=== PATIENT | male | born 1990 | race Two or more races ===

== ENCOUNTER 2018-06-27 20:25 | Emergency (ER) | payer OTHER ==
[2018-06-27 20:54] VITALS: TEMP 97.8; BMI 24.3
[2018-06-27] MEDS ORDERED: ACETAMINOPHEN 1000 MG/100 ML VIAL (NON FORMULARY) IVPB ONE (21:29)
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
[2018-06-27] MEDS ORDERED: ACETAMINOPHEN INJECTION 100 ML IVPB ONE (21:40)
[2018-06-27] MEDS ORDERED: diazePAM 2 MG TABLET PO ONE (21:53)
[2018-06-27] MEDS ORDERED: diazePAM 2 MG TABLET ONE (22:23)
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
[2018-06-28 01:35] VITALS: BP 138/76; PULSE 87
== END 2018-06-28 01:35 | disposition home or self-care (01) ==
LOC: JER 20:25
PROC: 3E033NZ Introduction of Analgesics, Hypnotics, Sedatives into Peripheral Vein, Percutaneous Approach (ICD-10-PCS; principal; 2018-06-27)
DX: R51 Headache (principal); M54.5 Low back pain; V43.52XA Car driver injured in collision with other type car in traffic accident, initial encounter; Y92.481 Parking lot as the place of occurrence of the external cause; Y93.89 Activity, other specified; Y99.8 Other external cause status
CPT/HCPCS: 70450-TC; 72100-TC-FY; 99283-25; J0131

== ENCOUNTER 2018-09-10 13:52 | Emergency (ER) | payer OTHER ==
[2018-09-10 14:14] VITALS: TEMP 97.8; BMI 25.8
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
[2018-09-10] MEDS ORDERED: ACETAMINOPHEN 325 MG TABLET (FP) PO ONE (15:35)
[2018-09-10] MEDS ORDERED: METHOCARBAMOL 500 MG TABLET PO ONE (15:35)
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
[2018-09-10] MEDS ORDERED: ACETAMINOPHEN 325 MG TABLET (FP) ONE (16:04)
[2018-09-10] MEDS ORDERED: METHOCARBAMOL 500 MG TABLET ONE (16:04)
[2018-09-10 16:10] LABS: PH,URINE 8.5 (5.0-8.0); URINE APPEARANCE CLEAR; URINE BILIRUBIN NEGATIVE (NEGATIVE); URINE COLOR YELLOW; URINE GLUCOSE (UA) NEGATIVE (NEGATIVE); URINE KETONE NEGATIVE (NEGATIVE); URINE LEUK ESTERASE NEGATIVE (NEGATIVE); URINE NITRITE NEGATIVE (NEGATIVE); URINE PROTEIN NEGATIVE (NEGATIVE)
[2018-09-10 19:32] VITALS: BP 137/87; PULSE 80
== END 2018-09-10 19:32 | disposition home or self-care (01) ==
LOC: JER 13:52
DX: M54.2 Cervicalgia (principal); V43.52XA Car driver injured in collision with other type car in traffic accident, initial encounter; Y93.89 Activity, other specified; Y92.410 Unspecified street and highway as the place of occurrence of the external cause
CPT/HCPCS: 70450-TC; 72070-TC-FY; 72100-TC-FY; 72125-TC; 72128-TC; 72170-TC-FY; 73030-TC-RT-FY; 73560-TC-LT-FY; 81003; 99283-25

== ENCOUNTER 2018-09-16 18:33 | Observation (INO) | payer OTHER ==
--- NOTE | 2018-09-16 18:42 | PDOC ---
Rapid Medical Evaluation Chief Complaint: Pain, Acute Time Seen by Provider: 09/16/18 18:39 Medical Evaluation: Allergies Allergy/AdvReac Type Severity Reaction Status Date / Time aspirin Allergy Verified 09/10/18 14:13 09/16/18 18:40 I have performed a brief in person evaluation at triage on this patient. CC: Right shoulder pain HPI: Pt states that his MD stated for him to come to the ED and have his MD paged as he is to have a repeat right shoulder xray. PE: Skin: clear Lungs: clear Heart: RRR MS: Pt's right UE is in a sling, unable to be evaluated at this time. Neuro: Alert and oriented Psych: Appropriate affect I have ordered: Right xray Pt will proceed to [facility] for further evaluation. Discharge Disposition - Diagnosis Shoulder pain, right Qualifiers: Chronicity: acute Qualified Code(s): M25.511 - Pain in right shoulder - Referrals - Patient Instructions - Post Discharge Activity
--- NOTE | 2018-09-16 19:12 | PDOC ---
History of Present Illness - General Chief Complaint: Pain, Acute Stated Complaint: SENT BY PCP Time Seen by Provider: 09/16/18 18:39 - History of Present Illness Initial Comments: 09/16/18 19:10 28-year-old male without comorbidities presents for evaluation through the office of an orthopedic surgeon for right shoulder dislocation. Past History - Past Medical History Allergies/Adverse Reactions: Allergies Allergy/AdvReac Type Severity Reaction Status Date / Time aspirin Allergy Verified 09/16/18 18:42 Home Medications: Ambulatory Orders NK [No Known Home Medication] 09/16/18 COPD: No - Suicide/Smoking/Psychosocial Hx Smoking History: Never smoked Have you smoked in the past 12 months: No Hx Alcohol Use: No Drug/Substance Use Hx: No Review of Systems - Review of Systems Musculoskeletal: Yes: Joint Pain *Physical Exam - Vital Signs Last Vital Signs Temp Pulse Resp BP Pulse Ox 99 F 85 18 137/83 100 09/16/18 18:41 09/16/18 18:41 09/16/18 18:41 09/16/18 18:41 09/16/18 18:41 - Physical Exam Comments: 09/16/18 19:11 Right shoulder skin color and temperature are normal. He has minimal internal and external rotation tenderness about the glenohumeral joint and scapula waning without gross sensorimotor deficits. Medical Decision Making - Medical Decision Making 09/16/18 19:[address] Bonilla will see the patient in fast track. 09/16/18 22:41 Pt will be admitted to Dr Bonilla after MRI *DC/Admit/Observation/Transfer Diagnosis at time of Disposition: Shoulder instability Shoulder pain, right Qualifiers: Chronicity: acute Qualified Code(s): M25.511 - Pain in right shoulder - Referrals - Patient Instructions - Post Discharge Activity
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
--- NOTE | 2018-09-16 22:58 | PDOC ---
*Physical Exam - Vital Signs Last Vital Signs Temp Pulse Resp BP Pulse Ox 99 F 85 18 137/83 100 09/16/18 18:41 09/16/18 18:41 09/16/18 18:41 09/16/18 18:41 09/16/18 18:41 Medical Decision Making - Medical Decision Making 09/16/18 22:58 Patient seen by the advanced practice provider under my direct supervision. Ancillary testing reviewed as necessary. I agree with plan as outlined by the advanced practice provider. *DC/Admit/Observation/Transfer Diagnosis at time of Disposition: Shoulder instability Shoulder pain, right Qualifiers: Chronicity: acute Qualified Code(s): M25.511 - Pain in right shoulder - Referrals - Patient Instructions - Post Discharge Activity
[2018-09-16] MEDS ORDERED: SODIUM CHLORIDE 1,000 ML IV SCH (23:45)
[2018-09-16] MEDS ORDERED: SODIUM CHLORIDE 0.9% 500 ML INFUS.BAG IV ONE (23:50)
--- NOTE | 2018-09-17 00:44 | PDOC ---
*Physical Exam - Vital Signs Last Vital Signs Temp Pulse Resp BP Pulse Ox 99 F 85 18 137/83 100 09/16/18 18:41 09/16/18 18:41 09/16/18 18:41 09/16/18 18:41 09/16/18 18:41 ED Treatment Course - LABORATORY CBC & Chemistry Diagram: 09/18/18 07:55 09/18/18 07:55 Medical Decision Making - Medical Decision Making 09/17/18 00:42 patient MRI completed. patient evaluated by Dr. srivastava. patient to be admitted for ortho surgery evaluation possible OR for repair tomorrow. Patient signed out to Dr. Messina/ Miah *DC/Admit/Observation/Transfer Diagnosis at time of Disposition: Shoulder pain, right Qualifiers: Chronicity: acute Qualified Code(s): M25.511 - Pain in right shoulder Shoulder instability Qualifiers: Laterality: unspecified laterality Qualified Code(s): M25.319 - Other instability, unspecified shoulder - Discharge Dispostion Disposition: HOME Condition at time of disposition: Stable Decision to Admit order: Yes - Referrals - Patient Instructions - Post Discharge Activity
[2018-09-17 01:05] LABS: EOS % 1.5 % (0-4.5); HEMOGLOBIN 15.8 GM/dL (11.7-16.9); LYMPH % 45.7 % (8-40); MCH 30.4 pg (25.7-33.7); MCHC 34.3 g/dl (32.0-35.9); MEAN CELL VOLUME 88.7 fl (80-96); MEAN PLT VOLUME 11.1 fl (7.5-11.1); MONO % 6.4 % (3.8-10.2); NEUT % 45.4 % (42.8-82.8); PLATELET COUNT 163 K/MM3 (134-434); RBC 5.18 M/mm3 (4.00-5.60); RDW 12.8 % (11.9-15.9); WHITE BLOOD COUNT 5.1 K/mm3 (4.0-10.0)
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
[2018-09-17 01:07] LABS: INR 1.11 (0.83-1.09); PROTHROMBIN TIME (PATIENT) 13.1 SEC (9.7-13.0)
[2018-09-17 01:14] LABS: ALK PHOS 104 U/L (45-117); ANION GAP 5 MMOL/L (8-16); BILIRUBIN,TOTAL 0.8 mg/dL (0.2-1); BLOOD UREA NITROGEN 17 mg/dL (7-18); CALCIUM 9.5 mg/dL (8.5-10.1); CHLORIDE 104 mmol/L (98-107); CO2 29 mmol/L (21-32); GLUCOSE,RANDOM 94 mg/dL (74-106); SGOT/AST 14 U/L (15-37); SGPT/ALT 20 U/L (13-61); SODIUM 137 mmol/L (136-145); TOT PROT 7.9 g/dl (6.4-8.2)
[2018-09-17] MEDS ORDERED: traMADol HCL 50 MG TABLET PO PRN (01:20)
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
[2018-09-17] MEDS: LACTATED RINGERS SOLUTION 1,000 ML IV SCH ×3 (02:38→17:15)
[2018-09-17 06:43] LABS: BASO % 1.5 % (0-2.0); EOS % 1.4 % (0-4.5); HEMATOCRIT 42.3 % (35.4-49); HEMOGLOBIN 14.6 GM/dL (11.7-16.9); LYMPH % 60.8 % (8-40); MCH 30.3 pg (25.7-33.7); MCHC 34.5 g/dl (32.0-35.9); MEAN CELL VOLUME 87.7 fl (80-96); MEAN PLT VOLUME 11.2 fl (7.5-11.1); MONO % 7.9 % (3.8-10.2); NEUT % 28.4 % (42.8-82.8); PLATELET COUNT 159 K/MM3 (134-434); RBC 4.83 M/mm3 (4.00-5.60); RDW 12.7 % (11.9-15.9); WHITE BLOOD COUNT 4.2 K/mm3 (4.0-10.0)
[2018-09-17 07:06] LABS: ALBUMIN 3.6 g/dl (3.4-5.0); ALK PHOS 89 U/L (45-117); ANION GAP 6 MMOL/L (8-16); BILIRUBIN,TOTAL 0.9 mg/dL (0.2-1); BLOOD UREA NITROGEN 16 mg/dL (7-18); CALCIUM 8.8 mg/dL (8.5-10.1); CHLORIDE 107 mmol/L (98-107); CO2 27 mmol/L (21-32); CREATININE 0.9 mg/dL (0.55-1.3); GLUCOSE,RANDOM 90 mg/dL (74-106); PHOSPHOROUS 3.6 mg/dL (2.5-4.9); POTASSIUM 3.9 mmol/L (3.5-5.1); SGOT/AST 9 U/L (15-37); SGPT/ALT 16 U/L (13-61); SODIUM 140 mmol/L (136-145); TOT PROT 6.6 g/dl (6.4-8.2)
--- NOTE | 2018-09-17 07:33 | PN ---
Progress Note (short form) - Note Progress Note: ORTHOPEDIC SURGERY PROGRESS NOTE Department of Orthopedic Surgery SUBJECTIVE No acute events overnight. No complaints currently. Denies chest pain, shortness of breath, or calf pain. No nausea or vomiting. Pain controlled. Intake & Output 09/15/18 09/16/18 09/17/18 23:59 23:59 23:59 Other: Weight 163 lb Height 5 ft 8 in Body Mass Index (BMI) 24.7 Active Medications Generic Name Dose Route Start Last Admin Trade Name Freq PRN Reason Stop Dose Admin Sodium Chloride 1,000 mls @ 125 mls/hr 09/16/18 23:45 09/17/18 00:38 Normal Saline - IV 125 mls/hr ASDIR LEVI Administration Lactated Ringer's 1,000 mls @ 100 mls/hr 09/17/18 01:30 09/17/18 02:38 Lactated Ringers Solution IV 100 mls/hr ASDIR LEVI Administration Tramadol HCl 50 mg 09/17/18 01:20 Ultram - PO Q6H PRN PAIN LEVEL 7 - 10 Vital Signs (last) Temp Pulse Resp BP Pulse Ox 99 F 85 18 137/83 100 09/16/18 18:41 09/16/18 18:41 09/16/18 18:41 09/16/18 18:41 09/16/18 18:41 Laboratory (coagulation) PT with INR 13.10 SEC (9.7-13.0) H 09/17/18 00:32 Laboratory 09/17/18 05:20 PHYSICAL EXAMINATION General: Alert, oriented, cooperative and no distress. Upper Extremity: Shoulder brace on. Skin intact, no lesions, rashes or ulcers noted. Muscle mass equal and symmetric to contralateral side. No atrophy noted. No masses or effusions noted. Tenderness to palpation anteriorly. Full passive and active ROM of elbow, wrist and fingers, free from pain. M/R/U/MSK motor intact; Decreased sensation over lateral deltoid. 2+ radial pulses; Cap refill brisk. DVT Exam: No evidence of DVT seen on physical exam; No cords or calf tenderness ; No significant calf/ankle edema. ASSESSMENT AND PLAN Oc Zimmer is a 28 year old male with unstable posterior glenohumeral instability. His glenohumeral joint is currently reduced in the brace. - Plan for OR today for diagnostic arthroscopy with arthroscopic vs open stabilization. Risks, benefits, and alternatives discussed. We discussed risks including but not limited to, bleeding, pain, infection, scarring, damage to neurovascular structures, blood clots, pulmonary embolus, need for additional surgery, incomplete relief of pain, and incomplete return of function - NPO - IVF - SCDs - Pain control - Ice/Elevation - Appreciate medical management (Nutrition optimization, decubitus precautions heel/sacrum)
[2018-09-17 07:42] VITALS: BMI 24.9
[2018-09-17 09:41] LABS: ANISOCYTOSIS 0; MACROCYTOSIS 0; PLATELET ESTIMATE NORMAL
--- NOTE | 2018-09-17 10:34 | EKG ---
Test Reason : Blood Pressure : / mmHG Vent. Rate : 059 BPM Atrial Rate : 059 BPM P-R Int : 182 ms QRS Dur : 090 ms QT Int : 388 ms P-R-T Axes : 082 036 049 degrees QTc Int : 384 ms SINUS BRADYCARDIA WITH SINUS ARRHYTHMIA OTHERWISE NORMAL ECG WHEN COMPARED WITH ECG OF 17-SEP-2018 02:33, NO SIGNIFICANT CHANGE WAS FOUND Confirmed by ZACH DUTTON MD ([id number]) on 09/17/2018 10:34:10 AM Referred By: Confirmed By:ZACH DUTTON MD
[2018-09-17] MEDS ORDERED: ROPIVACAINE HCL 0.5% 30ML VIAL ONE (12:27)
[2018-09-17] MEDS ORDERED: MIDAZOLAM HCL 2 MG/2 ML SINGLE DOSE VIAL ONE ×2 (12:28)
[2018-09-17] MEDS ORDERED: PROPOFOL 20 ML ONE ×2 (13:11)
[2018-09-17] MEDS ORDERED: SUCCINYLCHOLINE CHLORIDE 200 MG/10 ML VIAL ONE (13:11)
[2018-09-17] MEDS ORDERED: ePHEDrine SULFATE 50 MG/1 ML AMPULE ONE (13:11)
[2018-09-17] MEDS ORDERED: ceFAZolin SODIUM 1 GM VIAL IVPB ONE (13:27)
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
[2018-09-17] MEDS ORDERED: PROMETHAZINE HCL 25 MG/1 ML VIAL IVPUSH PRN (16:10)
[2018-09-17] MEDS ORDERED: LACTATED RINGERS SOLUTION 1,000 ML IV STA ×2 (16:10→16:57)
[2018-09-17] MEDS ORDERED: ONDANSETRON 4 MG/2 ML VIAL IVPUSH PRN ×2 (16:10→16:57)
[2018-09-17] MEDS ORDERED: oxyCODONE HCL 5 MG TABLET PO PRN ×4 (16:18→16:57)
[2018-09-17] MEDS ORDERED: PROMETHAZINE HCL 25 MG/1 ML VIAL IVPB PRN (16:57)
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
[2018-09-18] MEDS: LACTATED RINGERS SOLUTION 1,000 ML IV SCH (01:27)
[2018-09-18 07:11] VITALS: TEMP 97.5
[2018-09-18 08:30] LABS: BASO % 0.5 % (0-2.0); EOS % 0.1 % (0-4.5); HEMOGLOBIN 14.1 GM/dL (11.7-16.9); LYMPH % 22.1 % (8-40); MCH 29.9 pg (25.7-33.7); MCHC 33.6 g/dl (32.0-35.9); MEAN CELL VOLUME 89.1 fl (80-96); MEAN PLT VOLUME 10.9 fl (7.5-11.1); MONO % 9.6 % (3.8-10.2); NEUT % 67.7 % (42.8-82.8); PLATELET COUNT 167 K/MM3 (134-434); RBC 4.72 M/mm3 (4.00-5.60); RDW 12.8 % (11.9-15.9); WHITE BLOOD COUNT 7.2 K/mm3 (4.0-10.0)
--- NOTE | 2018-09-18 08:33 | PN ---
Progress Note (short form) - Note Progress Note: ORTHOPEDIC SURGERY PROGRESS NOTE Department of Orthopedic Surgery SUBJECTIVE No acute events overnight. No complaints currently. Denies chest pain, shortness of breath, or calf pain. No nausea or vomiting. Tolerating oral intake. Pain control difficult overnight, but improving. Intake & Output 09/16/18 09/17/18 09/18/18 23:59 23:59 23:59 Intake Total 2200 1000 Output Total 0 Balance 2200 1000 Intake: IV 2000 1000 Lactated Ringers Solution 1000 1,000 ml @ 100 mls/hr IV ASDIR LEVI Rx#: [id number] Lactated Ringers Solution 1000 1,000 ml @ 100 mls/hr IV ASDIR LEVI Rx#: [id number] Oral 200 Output: Urine 0 Other: Voiding Method Toilet Urinal Urinal # Unmeasured Voids Void 1 Weight 164 lb 1 oz Height 5 ft 8 in Body Mass Index (BMI) 24.9 Weight Measurement Method [facility] Active Medications Generic Name Dose Route Start Last Admin Trade Name Freq PRN Reason Stop Dose Admin Fentanyl 50 mcg 09/17/18 16:57 Sublimaze Injection - IVPUSH [id number] PRN PAIN-PACU ORDER X 4 DOSES ONLY Lactated Ringer's 1,000 mls @ 100 mls/hr 09/17/18 16:57 09/18/18 01:27 Lactated Ringers Solution IV 100 mls/hr ASDIR LEVI Administration Ondansetron HCl 4 mg 09/17/18 16:57 09/17/18 18:05 Zofran Injection IVPUSH 4 mg Q6H PRN Administration NAUSEA AND/OR VOMITING Oxycodone HCl 5 mg 09/17/18 16:57 Roxicodone - PO Q4H PRN PAIN LEVEL 1-5 Oxycodone HCl 10 mg 09/17/18 16:57 09/17/18 11:46 Roxicodone - PO 10 mg Q4H PRN Administration PAIN LEVEL 6-10 Promethazine HCl 12.5 mg 09/17/18 16:57 Phenergan Injection - IVPB Q6H PRN NAUSEA-FOR RESCUE AFTER 15 MIN Vital Signs (last) Temp Pulse Resp BP Pulse Ox 97.5 F L 75 20 109/71 99 09/18/18 06:00 09/18/18 06:00 09/18/18 06:00 09/18/18 06:00 09/17/18 18:07 Laboratory (coagulation) PT with INR 13.10 SEC (9.7-13.0) H 09/17/18 00:32 PHYSICAL EXAMINATION General: Alert, oriented, cooperative and no distress. Upper Extremity: Shoulder immobilizer on. Dressing intact; M/R/U/MSK motor intact; Unable to asses deltoid function due to pain. Decreased sensation over deltoid. Remainder sensor exam normal to light touch. 2+ radial pulses; Cap refill brisk. DVT Exam: No evidence of DVT seen on physical exam; No cords or calf tenderness ; No significant calf/ankle edema. IMAGING Intraoperative fluoroscopic images shows reduction of the glenohumeral joint. ASSESSMENT AND PLAN Oc Zimmer is a 28 year old male with posterior glenohumeral instability status post closed reduction and arthroscopic capsular plication. POD#1 - Doing well - Pain control: Transition to oral pain medications - Keep shoulder brace on at all times. - DVT prophylaxis - Ice/Elevation - Appreciate medical management - No ROM of the shoulder. NWB. - Dispo planning: Patient can follow up in the office on Saturday09/23/2018 at 3: 00 PM
[2018-09-18 08:37] LABS: ALBUMIN 3.5 g/dl (3.4-5.0); ALK PHOS 84 U/L (45-117); ANION GAP 7 MMOL/L (8-16); BILIRUBIN,TOTAL 1.1 mg/dL (0.2-1); BLOOD UREA NITROGEN 15 mg/dL (7-18); CALCIUM 8.8 mg/dL (8.5-10.1); CHLORIDE 105 mmol/L (98-107); CO2 28 mmol/L (21-32); CREATININE 0.9 mg/dL (0.55-1.3); GLUCOSE,RANDOM 109 mg/dL (74-106); MAGNESIUM 1.8 mg/dL (1.8-2.4); PHOSPHOROUS 4.1 mg/dL (2.5-4.9); SGOT/AST 11 U/L (15-37); SGPT/ALT 17 U/L (13-61); SODIUM 140 mmol/L (136-145); TOT PROT 6.6 g/dl (6.4-8.2)
[2018-09-18 11:02] VITALS: BP 125/56; PULSE 88
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
--- NOTE | 2018-09-19 16:44 | PATH ---
Surgical Pathology Report Patient Name: BISMARK LIGHT Med. Rec. #: [id number] /Age/Gender: 1990 (Age: 28) / M Account: [id number] Location: [facility] MED/SURG Taken: 09/17/2018 Received: 09/18/2018 Reported: 09/19/2018 Physicians: DO Andreea Cohn M.D. Specimen(s) Received RIGHT SHOULDER SHAVINGS Clinical History Right shoulder pain, instability shoulder joint Final Diagnosis SHOULDER, RIGHT, ARTHROSCOPIC SHAVINGS: FIBROSYNOVIAL TISSUE, FIBROCOLLAGENOUS TISSUE AND SKELETAL MUSCLE. Electronically Signed Farida Torres M.D. Gross Description Received in formalin, labeled "right shoulder shavings," is a 3.0 x 1.5 x 0.2 cm. aggregate of bellamy-yellow soft tissue fragments. A parts representative portion is submitted in one cassette. /09/18/2018 saudi09/18/2018
== END 2018-09-18 13:26 | disposition home or self-care (01) ==
LOC: JER 18:33 → JERFT 18:33 → INTOOBSV 22:39 → JERBED 22:39 → J8W 09-17 06:49
PROVIDERS: ADMIT Internal Medicine; ATTEND Internal Medicine
PROC: 0RQJ4ZZ Repair Right Shoulder Joint, Percutaneous Endoscopic Approach (ICD-10-PCS; principal; 2018-09-16)
PROC: 0RBJ4ZZ Excision of Right Shoulder Joint, Percutaneous Endoscopic Approach (ICD-10-PCS; 2018-09-16)
PROC: 3E03329 Introduction of Other Anti-infective into Peripheral Vein, Percutaneous Approach (ICD-10-PCS; 2018-09-16)
PROC: 3E0337Z Introduction of Electrolytic and Water Balance Substance into Peripheral Vein, Percutaneous Approach (ICD-10-PCS; 2018-09-16)
PROC: 3E033GC Introduction of Other Therapeutic Substance into Peripheral Vein, Percutaneous Approach (ICD-10-PCS; 2018-09-16)
DX: S43.024A Posterior dislocation of right humerus, initial encounter (principal); S43.431A Superior glenoid labrum lesion of right shoulder, initial encounter; M25.311 Other instability, right shoulder; M25.511 Pain in right shoulder; V43.52XA Car driver injured in collision with other type car in traffic accident, initial encounter; Y93.89 Activity, other specified; Y92.410 Unspecified street and highway as the place of occurrence of the external cause; M65.811 Other synovitis and tenosynovitis, right shoulder
CPT/HCPCS: 36415; 73030-TC-RT-FY; 73221-TC-RT; 76000-TC-FY; 80053; 83735; 84100; 85025; 85610; 86850; 86900; 86901; 88304-TC; 93005; 93010; 94760; 99285-25; G0378; J7030

== ENCOUNTER 2020-12-18 14:11 | Emergency (ER) | payer OTHER ==
[2020-12-18 14:31] VITALS: BP 128/81; PULSE 92; TEMP 98; BMI 25.8
== END 2020-12-18 15:09 | disposition home or self-care (01) ==
LOC: JERFT 14:11 → JER 14:11 → JERFT 15:09
DX: R09.89 Other specified symptoms and signs involving the circulatory and respiratory systems (principal)
CPT/HCPCS: 70360-TC-FY; 99283-25

== ENCOUNTER 2021-01-03 17:57 | Inpatient (IN) | payer OTHER ==
[2021-01-03 22:59] LABS: BASO % 1.7 % (0-2.0); EOS % 0.6 % (0-4.5); HEMATOCRIT 46.3 % (35.4-49); HEMOGLOBIN 15.9 GM/dL (11.7-16.9); LYMPH % 52.5 % (8-40); MCH 29.8 pg (25.7-33.7); MCHC 34.4 g/dl (32.0-35.9); MEAN CELL VOLUME 86.4 fl (80-96); MEAN PLT VOLUME 10.2 fl (7.5-11.1); MONO % 17.2 % (3.8-10.2); PLATELET COUNT 157 10^3/uL (134-434); RBC 5.36 M/mm3 (4.00-5.60); RDW 13.3 % (11.9-15.9); WHITE BLOOD COUNT 2.8 K/mm3 (4.0-10.0)
[2021-01-03 23:05] LABS: INR 1.11 (0.83-1.09); PROTHROMBIN TIME (PATIENT) 13.6 SEC (9.7-13.0)
[2021-01-03 23:08] LABS: ACTIVATED PTT 31.4 SECONDS (25.2-36.5)
[2021-01-03 23:25] LABS: CHLORIDE 105 mmol/L (98-107); SODIUM 139 mmol/L (136-145)
[2021-01-03 23:28] LABS: ALBUMIN 4.1 g/dl (3.4-5.0); ANION GAP 4 MMOL/L (8-16); BLOOD UREA NITROGEN 7.3 mg/dL (7-18); CO2 30 mmol/L (21-32); GLUCOSE,RANDOM 87 mg/dL (74-106)
[2021-01-03 23:31] LABS: CREATININE 1.1 mg/dL (0.55-1.3); SGOT/AST 29 U/L (15-37); SGPT/ALT 46 U/L (13-61)
[2021-01-03] MEDS ORDERED: FLUCONAZOLE 200 MG/NS 100 ML IVPB ONE (23:32)
[2021-01-03 23:33] LABS: BILIRUBIN,TOTAL 0.9 mg/dL (0.2-1); TOT PROT 8.3 g/dl (6.4-8.2)
[2021-01-03 23:34] LABS: ALK PHOS 109 U/L (45-117)
[2021-01-03] MEDS ORDERED: VANCOMYCIN 1 GM in D5W (PRE-DOCKED) 1,000 MG/250 ML IVPB ONE (23:53)
[2021-01-03] MEDS ORDERED: CEFEPIME HCL/D5W 2 GM/50 ML BAG IVPB ONE (23:56)
[2021-01-04] MEDS ORDERED: VANCOMYCIN 1 GRAM (PRE-DOCKED) 1,000 MG/250 ML BAG IVPB ONE (01:21)
[2021-01-04] MEDS ORDERED: CEFEPIME 2 GM/100 ML BAG IVPB ONE (01:22)
[2021-01-04 08:00] LABS: PH,URINE 6.5 (5.0-8.0); URINE APPEARANCE CLEAR; URINE BILIRUBIN NEGATIVE (NEGATIVE); URINE COLOR YELLOW; URINE GLUCOSE (UA) NEGATIVE (NEGATIVE); URINE KETONE NEGATIVE (NEGATIVE); URINE LEUK ESTERASE NEGATIVE (NEGATIVE); URINE NITRITE NEGATIVE (NEGATIVE); URINE PROTEIN TRACE (NEGATIVE); URINE UROBILINOGEN 0.2 mg/dL (0.2-1.0)
[2021-01-04] MEDS ORDERED: CEFEPIME HCL/D5W 2 GM/50 ML BAG IVPB SCH (08:00)
[2021-01-04] MEDS ORDERED: CEFEPIME 2 GM in DEXTROSE 5%-WATER 100 ML IVPB SCH (09:00)
[2021-01-04 11:27] LABS: EOS % 0.3 % (0-4.5); HEMATOCRIT 43.8 % (35.4-49); HEMOGLOBIN 15.2 GM/dL (11.7-16.9); LYMPH % 23.1 % (8-40); MCH 29.9 pg (25.7-33.7); MCHC 34.8 g/dl (32.0-35.9); MEAN CELL VOLUME 85.9 fl (80-96); NEUT % 62.6 % (42.8-82.8); PLATELET COUNT 164 10^3/uL (134-434); RDW 13.2 % (11.9-15.9); WHITE BLOOD COUNT 3.9 K/mm3 (4.0-10.0)
[2021-01-04] MEDS: ENOXAPARIN NA (PORCINE) 40 MG/0.4 ML DISP.SYRIN SQ SCH (11:35)
[2021-01-04 12:01] LABS: ALBUMIN 3.8 g/dl (3.4-5.0); CALCIUM 9.1 mg/dL (8.5-10.1)
[2021-01-04 12:02] LABS: BLOOD UREA NITROGEN 6.7 mg/dL (7-18); MAGNESIUM 2.1 mg/dL (1.8-2.4)
[2021-01-04 12:05] LABS: PHOSPHOROUS 2.8 mg/dL (2.5-4.9)
[2021-01-04 12:06] LABS: TOT PROT 7.5 g/dl (6.4-8.2)
[2021-01-04] MEDS ORDERED: ACETAMINOPHEN 1000 MG/100 ML VIAL (NON FORMULARY) IVPB ONE (12:40)
[2021-01-04] MEDS ORDERED: PT OWN MED DRAWER 7, Y5N ONE ×2 (12:45→15:01)
[2021-01-04] MEDS ORDERED: DEXTROSE 5%-WATER 100 ML IVPB ONE ×2 (15:30→22:25)
[2021-01-04] MEDS ORDERED: CEFEPIME HCL 1 GM VIAL (RESTRICTED TO ID) ONE ×2 (15:30→22:25)
[2021-01-04] MEDS: CEFEPIME 1 GM in DEXTROSE 5%-WATER 100 ML IVPB SCH ×2 (15:31→23:17)
[2021-01-05] MEDS ORDERED: DEXTROSE 5%-WATER 100 ML IVPB ONE ×3 (05:41→20:48)
[2021-01-05] MEDS ORDERED: CEFEPIME HCL 1 GM VIAL (RESTRICTED TO ID) ONE ×3 (05:41→20:48)
[2021-01-05] MEDS: CEFEPIME 1 GM in DEXTROSE 5%-WATER 100 ML IVPB SCH ×3 (06:16→22:10)
[2021-01-05] MEDS: ENOXAPARIN NA (PORCINE) 40 MG/0.4 ML DISP.SYRIN SQ SCH (09:01)
[2021-01-05] MEDS: PANTOPRAZOLE 40 MG TABLET PO SCH (09:01)
[2021-01-05 09:28] LABS: HEMATOCRIT 42.7 % (35.4-49); HEMOGLOBIN 14.7 GM/dL (11.7-16.9); MCH 29.8 pg (25.7-33.7); MCHC 34.6 g/dl (32.0-35.9); MEAN CELL VOLUME 86.1 fl (80-96); MEAN PLT VOLUME 10.7 fl (7.5-11.1); PLATELET COUNT 158 10^3/uL (134-434); RBC 4.96 M/mm3 (4.00-5.60); RDW 13.2 % (11.9-15.9); WHITE BLOOD COUNT 2.7 K/mm3 (4.0-10.0)
[2021-01-05] MEDS ORDERED: CEFEPIME 2 GM in DEXTROSE 5%-WATER 100 ML IVPB SCH (10:00)
[2021-01-05 10:12] LABS: ANISOCYTOSIS 0; HELMET CELLS 0; HOWELL-JOLLY BODIES 0; MACROCYTOSIS 0; OVALOCYTE 0; PLATELET ESTIMATE DECREASED; ROULEAU 0; SICKELED CELLS 0; TARGET CELLS 0; TEAR DROP CELLS 0; TOXIC GRANULATION 0
[2021-01-05 10:13] LABS: CALCIUM 8.7 mg/dL (8.5-10.1)
[2021-01-05 10:14] LABS: ALBUMIN 3.6 g/dl (3.4-5.0)
[2021-01-05 10:15] LABS: PHOSPHOROUS 2.9 mg/dL (2.5-4.9)
[2021-01-05 10:16] LABS: TOT PROT 7.2 g/dl (6.4-8.2)
[2021-01-05] MEDS ORDERED: BENZOCAINE/MENTH/CETYLPYRD CL 1 EACH LOZENGE MM PRN (13:17)
[2021-01-05] MEDS: NYSTATIN 500,000 UNITS/5 ML SUSPENSION PO SCH ×2 (16:59→23:58)
[2021-01-06] MEDS ORDERED: DEXTROSE 5%-WATER 100 ML IVPB ONE (05:04)
[2021-01-06] MEDS ORDERED: CEFEPIME HCL 1 GM VIAL (RESTRICTED TO ID) ONE (05:04)
[2021-01-06] MEDS: CEFEPIME 1 GM in DEXTROSE 5%-WATER 100 ML IVPB SCH (06:02)
[2021-01-06] MEDS: NYSTATIN 500,000 UNITS/5 ML SUSPENSION PO SCH ×3 (06:02→17:54)
[2021-01-06 09:59] LABS: BASO % 0.8 % (0-2.0); EOS % 0.6 % (0-4.5); HEMATOCRIT 45.4 % (35.4-49); HEMOGLOBIN 15.7 GM/dL (11.7-16.9); LYMPH % 54.8 % (8-40); MCH 29.6 pg (25.7-33.7); MCHC 34.5 g/dl (32.0-35.9); MEAN CELL VOLUME 85.6 fl (80-96); MEAN PLT VOLUME 9.8 fl (7.5-11.1); MONO % 19.3 % (3.8-10.2); NEUT % 24.5 % (42.8-82.8); PLATELET COUNT 153 10^3/uL (134-434); RDW 13.1 % (11.9-15.9); WHITE BLOOD COUNT 3.8 K/mm3 (4.0-10.0)
[2021-01-06 10:28] LABS: BLOOD UREA NITROGEN 10.2 mg/dL (7-18)
[2021-01-06 10:29] LABS: ALBUMIN 3.8 g/dl (3.4-5.0)
[2021-01-06 10:30] LABS: MAGNESIUM 2.1 mg/dL (1.8-2.4)
[2021-01-06 10:32] LABS: BILIRUBIN,TOTAL 0.9 mg/dL (0.2-1); PHOSPHOROUS 2.7 mg/dL (2.5-4.9)
[2021-01-06 10:39] LABS: CREATININE 1.2 mg/dL (0.55-1.3); TOT PROT 8.5 g/dl (6.4-8.2)
[2021-01-06] MEDS: ENOXAPARIN NA (PORCINE) 40 MG/0.4 ML DISP.SYRIN SQ SCH (11:38)
[2021-01-06] MEDS: PANTOPRAZOLE 40 MG TABLET PO SCH (11:38)
[2021-01-06 17:27] VITALS: BMI 25.5
[2021-01-06] MEDS ORDERED: PT OWN MED DRAWER 7, Y5N ONE (17:52)
[2021-01-06] MEDS: BICTEGRAV/EMTRICIT/TENOFOV (BIKTARVY) 50-200-25 MG TABLET PO SCH (17:54)
[2021-01-06] MEDS ORDERED: MAG HYDROX/AL HYDROX/SIMETH 30 ML UNIT-DOSE CUP PO ONE (23:49)
[2021-01-07] MEDS: NYSTATIN 500,000 UNITS/5 ML SUSPENSION PO SCH ×4 (00:01→18:28)
[2021-01-07 08:50] LABS: MCH 29.8 pg (25.7-33.7); MCHC 34.9 g/dl (32.0-35.9); MEAN CELL VOLUME 85.4 fl (80-96); MEAN PLT VOLUME 10.1 fl (7.5-11.1); PLATELET COUNT 159 10^3/uL (134-434); RBC 5.04 M/mm3 (4.00-5.60); RDW 13.2 % (11.9-15.9); WHITE BLOOD COUNT 3.8 K/mm3 (4.0-10.0)
[2021-01-07 08:55] LABS: CALCIUM 9.1 mg/dL (8.5-10.1); PHOSPHOROUS 3.2 mg/dL (2.5-4.9)
[2021-01-07 08:56] LABS: ALBUMIN 3.7 g/dl (3.4-5.0); BLOOD UREA NITROGEN 11.8 mg/dL (7-18); MAGNESIUM 2.1 mg/dL (1.8-2.4)
[2021-01-07 08:57] LABS: BILIRUBIN,TOTAL 0.9 mg/dL (0.2-1); TOT PROT 7.6 g/dl (6.4-8.2)
[2021-01-07 08:59] LABS: CREATININE 1.1 mg/dL (0.55-1.3)
[2021-01-07] MEDS ORDERED: PT OWN MED DRAWER 7, Y5N ONE (09:19)
[2021-01-07] MEDS: ENOXAPARIN NA (PORCINE) 40 MG/0.4 ML DISP.SYRIN SQ SCH (09:22)
[2021-01-07] MEDS: BICTEGRAV/EMTRICIT/TENOFOV (BIKTARVY) 50-200-25 MG TABLET PO SCH (09:23)
[2021-01-07] MEDS: PANTOPRAZOLE 40 MG TABLET PO SCH (09:23)
[2021-01-07] MEDS ORDERED: guaiFENesin/D-METHORPHAN HB 10 ML UNIT-DOSE CUPS PO PRN (10:46)
[2021-01-07] MEDS ORDERED: ACETAMINOPHEN 325 MG TABLET (FP) PO PRN (10:53)
[2021-01-07 15:53] VITALS: BP 116/56; PULSE 92; TEMP 99.1
== END 2021-01-07 20:47 | disposition home or self-care (01) | DRG 660 ==
LOC: JER 17:57 → JERBED 01-04 03:30 → J8W 01-04 09:35
PROVIDERS: ADMIT Internal Medicine; ATTEND Internal Medicine
DX: D70.9 Neutropenia, unspecified (principal); Z21 Asymptomatic human immunodeficiency virus [HIV] infection status; R51.9 Headache, unspecified; A53.9 Syphilis, unspecified; R50.81 Fever presenting with conditions classified elsewhere; K59.00 Constipation, unspecified; R19.7 Diarrhea, unspecified
CPT/HCPCS: 36415; 70470-TC; 71045-TC-FY; 71250-TC; 74019-TC-FY; 80053; 81003; 82550; 82553; 83605; 83735; 84100; 84484; 85025; 85610; 85730; 86359; 86360; 86593; 86780; 86850; 86900; 86901; 87040; 87086; 87536; 87804; 87880; 87899; 93005; 93010; 99285-25; C9803; J0131; Q9967; U0003; U0005

== ENCOUNTER 2022-10-03 17:29 | Emergency (ER) | payer OTHER ==
[2022-10-03 17:42] VITALS: BP 121/87; PULSE 71; RESP 20; TEMP 98.3; BMI 28.3
[2022-10-03] MEDS ORDERED: ACETAMINOPHEN 500 MG TABLET (FP) PO ONE (19:12)
[2022-10-03] MEDS ORDERED: ACETAMINOPHEN 500 MG TABLET (FP) ONE (19:17)
== END 2022-10-03 19:42 | disposition home or self-care (01) ==
LOC: JER 17:29
DX: R51.9 Headache, unspecified (principal)
CPT/HCPCS: 70450-TC; 99284-25

== ENCOUNTER 2022-10-23 07:33 | Emergency (ER) | payer OTHER ==
[2022-10-23 07:39] VITALS: BMI 28.5
[2022-10-23] MEDS ORDERED: ACETAMINOPHEN 500 MG TABLET (FP) PO ONE (09:11)
[2022-10-23 09:47] VITALS: BP 130/80; PULSE 82; RESP 20; TEMP 98
== END 2022-10-23 09:57 | disposition home or self-care (01) ==
LOC: JER 07:33
PROC: 0J9800Z Drainage of Abdomen Subcutaneous Tissue and Fascia with Drainage Device, Open Approach (ICD-10-PCS; principal; 2022-10-23)
DX: L02.211 Cutaneous abscess of abdominal wall (principal); M25.551 Pain in right hip; R50.9 Fever, unspecified; R11.0 Nausea
CPT/HCPCS: 99284-25

== ENCOUNTER 2023-01-06 14:51 | Emergency (ER) | payer OTHER ==
[2023-01-06 14:57] VITALS: BP 145/78; PULSE 74; RESP 18; TEMP 98.5; BMI 30.3
[2023-01-06] MEDS ORDERED: ACETAMINOPHEN 1000 MG/100 ML BAG IVPB ONE (15:24)
[2023-01-06 16:35] LABS: POTASSIUM 5.2 mmol/L (3.5-5.1)
[2023-01-06 16:37] LABS: BLOOD UREA NITROGEN 13.6 mg/dL (7-18); CALCIUM 9.4 mg/dL (8.5-10.1)
[2023-01-06 16:41] LABS: CREATININE 1.2 mg/dL (0.55-1.3)
[2023-01-06] MEDS ORDERED: ACETAMINOPHEN INJECTION 100 ML IVPB ONE (16:57)
[2023-01-06] MEDS: METOCLOPRAMIDE HCL INJECTION 10 MG/2 ML VIAL IVPUSH ONE ×2 (17:59→18:11)
[2023-01-06] MEDS ORDERED: METOCLOPRAMIDE HCL INJECTION 10 MG/2 ML VIAL ONE (17:59)
== END 2023-01-06 18:12 | disposition home or self-care (01) ==
LOC: JERFT 14:51 → JER 14:51 → JERFT 18:12
PROC: 3E033NZ Introduction of Analgesics, Hypnotics, Sedatives into Peripheral Vein, Percutaneous Approach (ICD-10-PCS; principal; 2023-01-06)
DX: G44.319 Acute post-traumatic headache, not intractable (principal); M54.6 Pain in thoracic spine; M54.2 Cervicalgia; Y04.8XXA Assault by other bodily force, initial encounter
CPT/HCPCS: 36415; 70450-TC; 71046-TC-FY; 72070-TC-FY; 80048; 99285-25

== ENCOUNTER 2023-04-11 23:46 | Emergency (ER) | payer OTHER ==
[2023-04-11 23:52] VITALS: BP 133/79; PULSE 60; RESP 18; TEMP 97.8; BMI 30.3
[2023-04-12] MEDS ORDERED: ACETAMINOPHEN 1000 MG/100 ML BAG IVPB ONE (00:22)
[2023-04-12] MEDS ORDERED: FAMOTIDINE 20 MG/50 ML IVPB 20 MG/50 ML MG IVPB ONE ×2 (00:22→00:29)
[2023-04-12] MEDS ORDERED: MAG HYDROX/AL HYDROX/SIMETH 30 ML UNIT-DOSE CUP PO ONE (00:22)
[2023-04-12] MEDS ORDERED: SODIUM CHLORIDE 0.9% 500 ML INFUS.BAG IV ONE (00:24)
[2023-04-12] MEDS ORDERED: ACETAMINOPHEN INJECTION 100 ML IVPB ONE (00:29)
[2023-04-12] MEDS ORDERED: MAG HYDROX/AL HYDROX/SIMETH 30 ML UNIT-DOSE CUP ONE (00:29)
[2023-04-12 00:58] LABS: BASO % 1.2 % (0-2.0); EOS % 1.6 % (0-4.5); HEMATOCRIT 44.7 % (35.4-49); HEMOGLOBIN 15.7 GM/dL (11.7-16.9); MCH 30.7 pg (25.7-33.7); MEAN CELL VOLUME 87.7 fl (80-96); MEAN PLT VOLUME 10.4 fl (7.5-11.1); MONO % 7.4 % (3.8-10.2); NEUT % 35.8 % (42.8-82.8); PLATELET COUNT 185 10^3/uL (134-434); RDW 13.2 % (11.9-15.9); WHITE BLOOD COUNT 5.6 K/mm3 (4.0-10.0)
[2023-04-12 01:15] LABS: POTASSIUM 3.9 mmol/L (3.5-5.1)
[2023-04-12 01:18] LABS: ALBUMIN 3.8 g/dl (3.4-5.0); BLOOD UREA NITROGEN 14.3 mg/dL (7-18)
[2023-04-12 01:21] LABS: CREATININE 1.2 mg/dL (0.55-1.3)
[2023-04-12 01:23] LABS: BILIRUBIN,TOTAL 0.6 mg/dL (0.2-1); TOT PROT 7.4 g/dl (6.4-8.2)
== END 2023-04-12 02:01 | disposition home or self-care (01) ==
LOC: JER 23:46
PROC: 3E033GC Introduction of Other Therapeutic Substance into Peripheral Vein, Percutaneous Approach (ICD-10-PCS; principal; 2023-04-12)
PROC: 3E033NZ Introduction of Analgesics, Hypnotics, Sedatives into Peripheral Vein, Percutaneous Approach (ICD-10-PCS; 2023-04-12)
DX: R07.9 Chest pain, unspecified (principal)
CPT/HCPCS: 36415; 71045-TC-FY; 80053; 84484; 85025; 86850; 86900; 86901; 93005; 93010; 99285-25

== ENCOUNTER 2023-05-20 17:10 | Emergency (ER) | payer OTHER ==
[2023-05-20 17:29] VITALS: BP 142/69; PULSE 52; RESP 16; TEMP 98; BMI 30.1
[2023-05-20] MEDS ORDERED: ACETAMINOPHEN 500 MG TABLET (FP) PO ONE (20:06)
[2023-05-20] MEDS ORDERED: ACETAMINOPHEN 325 MG TABLET (FP) ONE (20:25)
[2023-05-20 20:52] LABS: EOS % 1.9 % (0-4.5); HEMATOCRIT 48.9 % (35.4-49); HEMOGLOBIN 16.9 GM/dL (11.7-16.9); LYMPH % 53.4 % (8-40); MCH 30.9 pg (25.7-33.7); MCHC 34.5 g/dl (32.0-35.9); MEAN CELL VOLUME 89.5 fl (80-96); MEAN PLT VOLUME 10.5 fl (7.5-11.1); MONO % 5.4 % (3.8-10.2); NEUT % 38.3 % (42.8-82.8); PLATELET COUNT 184 10^3/uL (134-434); RBC 5.46 M/mm3 (4.00-5.60); RDW 13.2 % (11.9-15.9)
[2023-05-20 21:22] LABS: POTASSIUM 4.3 mmol/L (3.5-5.1)
[2023-05-20 21:24] LABS: BLOOD UREA NITROGEN 18.4 mg/dL (7-18); CALCIUM 10.9 mg/dL (8.5-10.1)
[2023-05-20 21:25] LABS: ALBUMIN 4.2 g/dl (3.4-5.0)
[2023-05-20 21:28] LABS: CREATININE 1.2 mg/dL (0.55-1.3)
[2023-05-20 21:29] LABS: BILIRUBIN,TOTAL 0.8 mg/dL (0.2-1); TOT PROT 8.3 g/dl (6.4-8.2)
== END 2023-05-20 22:06 | disposition home or self-care (01) ==
LOC: JER 17:10
DX: R07.89 Other chest pain (principal); R06.02 Shortness of breath; R20.0 Anesthesia of skin
CPT/HCPCS: 36415; 71046-TC-FY; 80053; 84484; 85025; 93005; 93010; 99285-25

== ENCOUNTER 2024-03-19 13:08 | Emergency (ER) | payer OTHER ==
[2024-03-19 13:13] VITALS: BP 147/77; PULSE 66; RESP 20; TEMP 98.2; BMI 30.1
[2024-03-19] MEDS ORDERED: ACETAMINOPHEN 500 MG TABLET (FP) ONE (14:46)
[2024-03-19] MEDS: ACETAMINOPHEN 500 MG TABLET (FP) PO ONE (14:54)
== END 2024-03-19 15:14 | disposition home or self-care (01) ==
LOC: JERFT 13:08
DX: S46.912A Strain of unspecified muscle, fascia and tendon at shoulder and upper arm level, left arm, initial encounter (principal); X50.9XXA Other and unspecified overexertion or strenuous movements or postures, initial encounter
CPT/HCPCS: 99283-25